=== PATIENT | female | born 1995 ===

== ENCOUNTER 2016-11-23 17:08 | Emergency (ER) | payer SELFPAY ==
[2016-11-23 17:17] VITALS: RESP 18; O2SAT 100
[2016-11-23] MEDS ORDERED: Lidocaine 2% w Epi 1:100,000 Inj IJ ONE (17:44)
[2016-11-23] MEDS ORDERED: Bacitracin 500 Units/gm Oint Foilpak UD ONE ×2 (17:45→18:30)
[2016-11-23] MEDS ORDERED: Bacitracin 500 Units/gm Oint Foilpak UD TOP STA (17:54)
[2016-11-23] MEDS ORDERED: Tetanus/Diphtheria Toxoids 0.5 ml Syringe IM ONE ×2 (17:54→18:10)
[2016-11-23] MEDS ORDERED: Lidocaine 1% w Epi 1:100,000 Inj INJ STA (17:55)
--- NOTE | 2016-11-23 18:52 | C.PDOC ---
History Of Present Illness 21-year-old female, presents to the emergency department with complaints of laceration to her head, after she fell and hit something, which caused a pot to fall on her. Denies LOC, dizziness, nausea/vomiting, or any other associated symptoms. No other complaints at this time. Time Seen by Provider: 11/23/16 17:41 Chief Complaint (Nursing): Abnormal Skin Integrity History Per: Patient History/Exam Limitations: no limitations Past Medical History Reviewed: Historical Data, Nursing Documentation, Vital Signs Vital Signs: Last Vital Signs Temp 98.2 F 11/23/16 19:17 Pulse 84 11/23/16 19:17 Resp 18 11/23/16 19:17 BP 120/79 11/23/16 19:17 Pulse Ox 100 11/23/16 19:17 Family History: States: No Known Family Hx - Social History Hx Alcohol Use: Yes Hx Substance Use: No Review Of Systems Except As Marked, All Systems Reviewed And Found Negative. Cardiovascular: Negative for: Chest Pain Respiratory: Negative for: Shortness of Breath Gastrointestinal: Negative for: Vomiting Neurological: Negative for: Weakness, Numbness Physical Exam - Physical Exam Appears: Non-toxic, No Acute Distress Skin: Warm, Dry, No Rash, Other (2cm laceration to forehead.) Head: Atraumatic, Normacephalic Eye(s): bilateral: Normal Inspection Nose: Normal Oral Mucosa: Moist Lips: Normal Appearing Neck: Normal ROM Respiratory: No Accessory Muscle Use Extremity: Normal ROM Neurological/Psych: Oriented x3 ED Course And Treatment O2 Sat by Pulse Oximetry: 100 Medical Decision Making Medical Decision Making: PROCEDURE: LACERATION REPAIR Performed by the emergency provider Location: Forehead Length: 2.5 cm Description:clean wound edges Distal CMS:Normal. No deficits. Neurovascularly intact. Anesthesia:Lidocaine 1% Preparation:The wound was cleaned with NS and Betadyne. The area was prepped and draped in the usual sterile fashion. Exploration:The wound was explored and no foreign bodies were found. Procedure:The wound was closed with 5'0 nylon. There was appropriate approximation. In total, 7 sutures were used. Post-Procedure:Good closure and hemostasis. The patient tolerated the procedure well and there were no complications. CSM remains intact. Post procedure dressing applied. Disposition - Disposition Disposition: HOME/ ROUTINE Disposition Time: 19:00 Condition: STABLE Additional Instructions: Follow up with PMD within 1-2 days. Return to ED if feel worse. Suture removal in 8 days. Prescriptions: Bacitracin OINT 1 applic TP TID #45 g Instructions: Facial Laceration (ED) Print Language: LIBERIAN - Clinical Impression Clinical Impression: Forehead laceration - Scribe Statement The provider has reviewed the documentation as recorded by the Ameliaibomari Mancilla All medical record entries made by the Ameliaibe were at my direction and personally dictated by me. I have reviewed the chart and agree that the record accurately reflects my personal performance of the history, physical exam, medical decision making, and the department course for this patient. I have also personally directed, reviewed, and agree with the discharge instructions and disposition.
[2016-11-23 19:17] VITALS: BP 120/79; PULSE 84; TEMP 98.2
== END 2016-11-23 19:17 | disposition home or self-care (01) ==
LOC: C.ER 17:08
DX: S01.81XA Laceration without foreign body of other part of head, initial encounter (principal); W01.198A Fall on same level from slipping, tripping and stumbling with subsequent striking against other object, initial encounter; Y93.89 Activity, other specified; Z23 Encounter for immunization; Y92.89 Other specified places as the place of occurrence of the external cause

== ENCOUNTER 2016-11-26 11:00 | Emergency (ER) | payer OTHER ==
[2016-11-26 11:14] VITALS: RESP 16; O2SAT 99
--- NOTE | 2016-11-26 12:29 | CT ---
PROCEDURE: CT HEAD WITHOUT CONTRAST. HISTORY: headache, trauma R frontal/pariet scalp 2 days ago COMPARISON: None available. TECHNIQUE: Axial computed tomography images were obtained through the head/brain without intravenous contrast. Radiation dose: Total exam DLP = 851.41 mGy-cm. This CT exam was performed using one or more of the following dose reduction techniques: Automated exposure control, adjustment of the mA and/or kV according to patient size, and/or use of iterative reconstruction technique. FINDINGS: HEMORRHAGE: No intracranial hemorrhage. BRAIN: No mass effect or edema. No atrophy or chronic microvascular ischemic changes. VENTRICLES: No hydrocephalus. CALVARIUM: Unremarkable. PARANASAL SINUSES: Unremarkable as visualized. No significant inflammatory changes. MASTOID AIR CELLS: Unremarkable as visualized. No inflammatory changes. OTHER FINDINGS: Right frontal scalp soft tissue swelling. Partial opacification of the left external auditory canal, likely cerumen. IMPRESSION: Right frontal scalp soft tissue swelling. No acute intracranial pathology identified.
--- NOTE | 2016-11-26 12:40 | C.PDOC ---
History Of Present Illness The patient, a 21 y/o female, presents to the ED for evaluation of headache which began around 3 days ago. Patient was evaluated in ED on 11/23 after undergoing head trauma. Patient states she was at work when a pot fell and struck her on her head. Patient states her pain has worsened today and is associated with dizziness. She denies vision change, numbness, weakness, nausea , vomiting. Time Seen by Provider: 11/26/16 11:32 Chief Complaint (Nursing): Headache History Per: Patient History/Exam Limitations: no limitations Onset/Duration Of Symptoms: Days Current Symptoms Are (Timing): Still Present Quality: "Pain" Preceeding Symptoms: denies: Visual Disturbances Associated Symptoms: denies: Photophobia, Blurred Vision, Nausea, Vomiting Additional History Per: Patient Past Medical History Reviewed: Historical Data, Nursing Documentation, Vital Signs Vital Signs: Last Vital Signs Temp 97.6 F 11/26/16 12:55 Pulse 82 11/26/16 12:55 Resp 16 11/26/16 12:55 BP 110/70 11/26/16 12:55 Pulse Ox 99 11/26/16 13:05 - Medical History PMH: No Chronic Diseases Surgical History: No Surg Hx Family History: States: No Known Family Hx - Social History Hx Alcohol Use: Yes Hx Substance Use: No Review Of Systems Except As Marked, All Systems Reviewed And Found Negative. Eyes: Negative for: Vision Change Gastrointestinal: Negative for: Nausea, Vomiting Neurological: Positive for: Headache, Dizziness Physical Exam - Physical Exam Appears: Non-toxic, No Acute Distress Skin: Normal Color, Warm, Dry Head: Normacephalic, Tenderness (right frontal scalp and forehead ), Swelling ( right frontal scalp and forehead), Other (+healing suture wound to right forehead ) Eye(s): bilateral: Normal Inspection, PERRL, EOMI Ear(s): Bilateral: Normal (No bleeding or grewal sign) Nose: Normal Oral Mucosa: Moist Neck: Normal ROM, No Midline Cervical Tenderness, No Paracervical Tenderness, Supple Chest: Symmetrical, No Tenderness Cardiovascular: Rhythm Regular, No Friction Rub, No Murmur Respiratory: Normal Breath Sounds Extremity: Normal ROM, Capillary Refill (less than 2 seconds ), No Swelling Neurological/Psych: Oriented x3, Normal Speech, Normal Cognition, Normal Motor, Other (no focal deficits ) Gait: Steady ED Course And Treatment O2 Sat by Pulse Oximetry: 99 (on RA ) Pulse Ox Interpretation: Normal - CT Scan/US Head CT Other Rad Studies (CT/US): Read By Radiologist, Radiology Report Reviewed CT/US Interpretation: Unremarkable Progress Note: CT Head ordered. Patient received Tylenol PO. Medical Decision Making Medical Decision Making: Patient was evaluated in ED on 11/23 after undergoing head trauma. Patient had unremarkable physical exam at the time. Sutures were placed to her right forehead and patient was stable for discharge. Sutures are intact and healing. Patient was instructed to return in 3-4 days for possible removal. On re-exam, the patient reports improvement of symptoms. Ambulatory in the ED with steady gait. Awake and A&O x3. Lungs are CTA, heart is RRR, abdomen is soft, non-tender and patient is tolerating PO well. Follow up with the medical doctor within 1-2 days without fail. Return if worsened. Disposition - Disposition Referrals: [facility] [Outside] Disposition: HOME/ ROUTINE Disposition Time: 12:59 Condition: GOOD Additional Instructions: Follow up with the medical doctor within 1-2 days, Return if worsened Prescriptions: Acetaminophen [Tylenol] 325 mg PO Q6 PRN #30 tab PRN Reason: Pain, Mild (1-3) Ibuprofen [Motrin Tab] 800 mg PO TID #20 tab Instructions: Head Injury (ED) Forms: Work Excuse - Clinical Impression Clinical Impression: Headache, Forehead laceration - PA / [employer] / Resident Statement MD/DO has reviewed & agrees with the documentation as recorded. - Scribe Statement The provider has reviewed the documentation as recorded by the Scribe (Kristy Jade) All medical record entries made by the Scribe were at my direction and personally dictated by me. I have reviewed the chart and agree that the record accurately reflects my personal performance of the history, physical exam, medical decision making, and the department course for this patient. I have also personally directed, reviewed, and agree with the discharge instructions and disposition.
[2016-11-26 13:04] VITALS: BP 110/70; PULSE 82; TEMP 97.6
== END 2016-11-26 13:18 | disposition home or self-care (01) ==
LOC: C.ER 11:00
DX: R51 Headache (principal); S01.81XD Laceration without foreign body of other part of head, subsequent encounter; W22.8XXD Striking against or struck by other objects, subsequent encounter; Y92.89 Other specified places as the place of occurrence of the external cause

== ENCOUNTER 2016-12-01 15:21 | Emergency (ER) | payer SELFPAY ==
[2016-12-01 15:30] VITALS: BP 121/80; PULSE 75; RESP 15; TEMP 98.3; O2SAT 100
--- NOTE | 2016-12-01 15:46 | C.PDOC ---
History Of Present Illness 21 yr old female presents to the ER for suture removal, s/p laceration repair to the right forehead on November 23. Patient denies fever, vision changes, nausea, vomiting, headache, weakness or numbness. Time Seen by Provider: 12/01/16 15:38 Chief Complaint (Nursing): Suture/Staple Removal History Per: Patient History/Exam Limitations: no limitations Onset/Duration Of Symptoms: Days Ago (November 23) Past Medical History Reviewed: Historical Data, Nursing Documentation, Vital Signs Vital Signs: Last Vital Signs Temp 98.3 F 12/01/16 15:28 Pulse 75 12/01/16 15:28 Resp 15 12/01/16 15:28 BP 121/80 12/01/16 15:28 Pulse Ox 100 12/01/16 15:46 Family History: States: No Known Family Hx - Social History Hx Alcohol Use: Yes Hx Substance Use: No - Immunization History Hx Tetanus Toxoid Vaccination: Yes Review Of Systems Except As Marked, All Systems Reviewed And Found Negative. Constitutional: Negative for: Fever Eyes: Negative for: Vision Change Gastrointestinal: Negative for: Nausea, Vomiting Neurological: Negative for: Weakness, Numbness, Headache Physical Exam - Physical Exam Appears: Well, Non-toxic, No Acute Distress Skin: Warm, Dry, Other (Right Forehead - 7 sutures, clean, dry and intact. No signs of infections. No drainage. ) Head: Atraumatic, Normacephalic Eye(s): bilateral: PERRL, EOMI Neurological/Psych: Oriented x3, Normal Speech, Normal Motor ED Course And Treatment O2 Sat by Pulse Oximetry: 100 Medical Decision Making Medical Decision Makin sutures removed by me without difficulty. 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 - Scribe Statement The provider has reviewed the documentation as recorded by the Scribe Stacie Beaver All medical record entries made by the Scribe were at my direction and personally dictated by me. I have reviewed the chart and agree that the record accurately reflects my personal performance of the history, physical exam, medical decision making, and the department course for this patient. I have also personally directed, reviewed, and agree with the discharge instructions and disposition.
== END 2016-12-01 16:06 | disposition home or self-care (01) ==
LOC: C.ER 15:21
DX: Z48.02 Encounter for removal of sutures (principal)